=== PATIENT | male | born 1970 | race Caucasian/White ===

== ENCOUNTER 2019-11-27 23:35 | Observation (INO) ==
[2019-11-28] MEDS ORDERED: 0.9 % Sodium Chloride 1,000 ML IVC ONE ×2 (01:14→02:32)
[2019-11-28 01:54] LABS: Basophils # 0.1 K/mcL (0.0-0.2); Basophils % 0.3 %; Eosinophils % 0.2 %; Hematocrit 38.1 % (37.5-50.1); Hemoglobin 12.9 g/dL (12.9-16.9); Immature Granulocytes % 0.4 % (0-4); Lymphocytes # 1.5 K/mcL (0.6-4.6); Lymphocytes % 8.1 %; Mean Corpuscular HGB Conc 33.9 g/dL (31.6-35.5); Mean Corpuscular Hemoglobin 30.4 pg (28.0-33.3); Mean Corpuscular Volume 89.9 fL (83.0-100.0); Mean Platelet Volume 9.4 fL (9.4-12.4); Monocytes # 1.2 K/mcL (0.0-1.3); Monocytes % 6.4 %; Neutrophils # 15.6 K/mcL (1.6-8.9); Platelet Count 265 K/mcL (140-400); Red Blood Count 4.24 M/mcL (4.19-5.50); Red Cell Distribution Width 11.8 % (11.5-14.5); Segmented Neutrophils % 84.6 %; White Blood Count 18.4 K/mcL (4.3-11.1)
[2019-11-28 01:59] LABS: Bilirubin,Urine Negative (Negative); Blood,Urine Negative (Negative); Clarity,Urine Clear (Clear); Color,Urine Yellow (Yellow); Glucose,Urine (UA) Normal (Normal); Ketones,Urine Trace mg/dL (Negative); Leukocyte Esterase,Urine Negative (Negative); Nitrite,Urine Negative (Negative); Protein,Urine Trace mg/dL (Neg-Trace); Specific Gravity,Urine 1.027 (1.010-1.025)
[2019-11-28 02:13] LABS: Amphetamine Screen,Urine Positive ng/mL (Cutoff=1000); Barbiturate Screen,Urine Negative ng/mL (Cutoff=200); Benzodiazepines Screen,Urine Negative ng/mL (Cutoff=200); Cannabinoid Screen,Urine Negative ng/mL (Cutoff = 50); Cocaine Screen,Urine Negative ng/mL (Cutoff= 300); Opiate Screen,Urine Negative ng/mL (Cutoff=300); Phencyclidine Screen,Urine Negative ng/mL (Cutoff=25)
[2019-11-28 02:16] LABS: Alanine Aminotransferase 19 Units/L (7-52); Albumin/Globulin Ratio 1.3 (1.1-2.2); Alkaline Phosphatase 93 Units/L (34-104); Aspartate Amino Transferase 17 Units/L (13-39); BUN/Creatinine Ratio 15 (6-26); Bilirubin,Direct 0.2 mg/dL (0.0-0.2); Bilirubin,Indirect 0.7 mg/dL (0.0-1.0); Bilirubin,Total 0.9 mg/dL (0.3-1.0); Blood Urea Nitrogen 13 mg/dL (6-20); Calcium 9.2 mg/dL (8.6-10.3); Carbon Dioxide 20 mEq/L (23-29); Chloride 103 mEq/L (98-107); Creatine Kinase 104 Units/L (30-223); Glucose 95 mg/dL (70-105); Lipase 31 Units/L (11-82); Osmolality,Calculated 278 (280-300); Potassium 4.3 mEq/L (3.5-5.1); Sodium 134 mEq/L (136-145); Troponin I < 0.03 ng/mL (< 0.04); eGFR For African Americans > 60 (> 60); eGFR For Non-African Americans > 60 (> 60)
[2019-11-28] MEDS ORDERED: Isovue-370 500 ML BOTTLE IVP ONE (02:30)
[2019-11-28] MEDS ORDERED: Piperacillin/Tazobactam 3.375 GM in 0.9 % Sodium Chloride Mini Bag 100 ML IVPB ONE (02:31)
[2019-11-28] MEDS ORDERED: Vancomycin 1,750 MG/517.5 ML IV.SOLN IVPB ONE (02:31)
[2019-11-28] MEDS ORDERED: Acetaminophen 325 MG TABLET PO ONE (04:49)
[2019-11-28 05:32] LABS: VBG HCO3 24 mEq/L (21-27); VBG PCO2 43 mmHg (41-51); VBG PH 7.35 pH Units (7.32-7.42); VBG PO2 103 mmHg (25-50)
[2019-11-28] MEDS ORDERED: Naloxone 0.4 MG/ML INJ IVP PRN (05:49)
[2019-11-28] MEDS ORDERED: Acetaminophen 325 MG TABLET PO PRN (05:49)
[2019-11-28] MEDS ORDERED: *HR* Promethazine 25 MG/ML VIAL IVP PRN (05:49)
[2019-11-28 06:30] LABS: Adenovirus Not Detected (Not Detect); Coronavirus 229E Not Detected (Not Detect); Coronavirus HKU1 Not Detected (Not Detect); Coronavirus NL63 Not Detected (Not Detect); Coronavirus OC43 Not Detected (Not Detect)
[2019-11-28 06:31] LABS: Bordetella Pertussis Not Detected (Not Detect); Chlamydophila pneumoniae Not Detected (Not Detect); Human Metapneumovirus Not Detected (Not Detect); Human Rhinovirus/Enterovirus Not Detected (Not Detect); Influenza A Subtype 2009 H1 Not Detected (Not Detect); Influenza B Not Detected (Not Detect); Mycoplasma pneumoniae Not Detected (Not Detect); Parainfluenza Virus 1 Not Detected (Not Detect); Parainfluenza Virus 2 Not Detected (Not Detect); Parainfluenza Virus 3 Not Detected (Not Detect); Parainfluenza Virus 4 Not Detected (Not Detect); Respiratory Syncytial Virus Not Detected (Not Detect)
[2019-11-28] MEDS: 0.9 % Sodium Chloride 1,000 ML IVC SCH ×2 (08:42→18:06)
[2019-11-28] MEDS: Piperacillin/Tazobactam 3.375 GM in 0.9 % Sodium Chloride Mini Bag 100 ML IVPB SCH ×2 (11:12→18:06)
[2019-11-28 12:20] LABS: Thyroid Stimulating Hormone 0.989 mcIU/mL (0.340-5.600)
[2019-11-28] MEDS: Vancomycin 1,250 MG/262.5 ML IV.SOLN IVPB SCH (15:52)
[2019-11-28] MEDS: *HR* Heparin 5,000 UNIT/ML VIAL SQ SCH (18:07)
[2019-11-29] MEDS: 0.9 % Sodium Chloride 1,000 ML IVC SCH ×3 (02:15→22:31)
[2019-11-29] MEDS: Piperacillin/Tazobactam 3.375 GM in 0.9 % Sodium Chloride Mini Bag 100 ML IVPB SCH ×3 (02:22→22:32)
[2019-11-29 03:18] LABS: Hematocrit 35.8 % (37.5-50.1); Hemoglobin 11.7 g/dL (12.9-16.9); Mean Corpuscular HGB Conc 32.7 g/dL (31.6-35.5); Mean Corpuscular Volume 91.8 fL (83.0-100.0); Mean Platelet Volume 9.5 fL (9.4-12.4); Platelet Count 256 K/mcL (140-400); Red Cell Distribution Width 11.9 % (11.5-14.5); White Blood Count 11.5 K/mcL (4.3-11.1)
[2019-11-29 03:26] LABS: BUN/Creatinine Ratio 14 (6-26); Blood Urea Nitrogen 11 mg/dL (6-20); Calcium 8.6 mg/dL (8.6-10.3); Carbon Dioxide 21 mEq/L (23-29); Chloride 109 mEq/L (98-107); Glucose 91 mg/dL (70-105); Magnesium 1.9 mg/dL (1.6-2.6); Osmolality,Calculated 283 (280-300); Phosphorous 2.9 mg/dL (2.7-4.5); Potassium 4.2 mEq/L (3.5-5.1); Sodium 137 mEq/L (136-145); eGFR For African Americans > 60 (> 60); eGFR For Non-African Americans > 60 (> 60)
[2019-11-29] MEDS: Vancomycin 1,250 MG/262.5 ML IV.SOLN IVPB SCH (04:14)
[2019-11-29] MEDS: *HR* Heparin 5,000 UNIT/ML VIAL SQ SCH ×2 (05:39→16:12)
[2019-11-29] MEDS: Vancomycin 1,500 MG/265 ML IV.SOLN IVPB SCH (16:11)
[2019-11-30 01:57] LABS: Hematocrit 37.5 % (37.5-50.1); Mean Corpuscular Hemoglobin 29.8 pg (28.0-33.3); Mean Corpuscular Volume 93.1 fL (83.0-100.0); Mean Platelet Volume 9.8 fL (9.4-12.4); Platelet Count 276 K/mcL (140-400); Red Blood Count 4.03 M/mcL (4.19-5.50); Red Cell Distribution Width 11.9 % (11.5-14.5); White Blood Count 9.9 K/mcL (4.3-11.1)
[2019-11-30 02:18] LABS: BUN/Creatinine Ratio 22 (6-26); Blood Urea Nitrogen 16 mg/dL (6-20); Calcium 8.7 mg/dL (8.6-10.3); Carbon Dioxide 21 mEq/L (23-29); Chloride 110 mEq/L (98-107); Glucose 95 mg/dL (70-105); Osmolality,Calculated 291 (280-300); Sodium 140 mEq/L (136-145); eGFR For African Americans > 60 (> 60); eGFR For Non-African Americans > 60 (> 60)
[2019-11-30] MEDS: *HR* Heparin 5,000 UNIT/ML VIAL SQ SCH (05:30)
[2019-11-30] MEDS: Vancomycin 1,500 MG/265 ML IV.SOLN IVPB SCH (05:37)
[2019-11-30] MEDS: Piperacillin/Tazobactam 3.375 GM in 0.9 % Sodium Chloride Mini Bag 100 ML IVPB SCH ×2 (05:38→14:30)
[2019-11-30] MEDS: 0.9 % Sodium Chloride 1,000 ML IVC SCH ×2 (09:03→14:30)
[2019-11-30 11:24] VITALS: BP 136/86
== END 2019-11-30 17:50 | disposition left against medical advice (07) ==
LOC: EMEROOARM 23:35 → 3BNU 23:35 → SUATTDRO 11-28 06:43 → 3BNU 11-28 07:50
PROVIDERS: ADMIT Student in an Organized Health Care Education/Training Program; ATTEND Nurse Practitioner Adult Health